=== PATIENT | female | born 1990 | race Caucasian/White ===

== ENCOUNTER 2021-05-26 06:37 | Emergency (ER) | payer OTHER ==
[~2021-05-26] VITALS: Ht 172.7 cm; Wt 113.4 kg
[2021-05-26] MEDS ORDERED: LEVOTHYROXINE50 MC1 PO (06:43)
[2021-05-26] MEDS ORDERED: SERTRALINE HCL100 MG PO (06:43)
[2021-05-26 07:26] LABS: ABSOLUTE BASOPHILS 0.1 thou/uL (0.0-0.2); ABSOLUTE EOSINOPHILS 0.2 thou/uL (0.0-0.7); ABSOLUTE LYMPHOCYTES 2.1 thou/uL (0.8-5.3); ABSOLUTE MONOCYTES 0.6 thou/uL (0.0-1.2); ABSOLUTE NEUTROPHILS 7.2 thou/uL (1.6-8.1); EOSINOPHILS 1.5 %; HEMOGLOBIN 13.3 gm/dL (12.0-15.0); LYMPHOCYTES 21.1 %; MCH 31.1 pg (26.0-34.0); MCV 88.9 fL (80.0-100.0); MONOCYTES 5.6 %; MPV 7.3 fl. (7.2-11.1); NUCLEATED RBCS 0 /100WBC; PLATELET COUNT* 374 thou/uL (150-400); POLYS 70.8 %; RBC 4.28 mil/uL (4.20-5.00); RDW-CV 13.8 % (10.5-14.5); WBC 10.2 thou/uL (4.0-11.0)
[2021-05-26 07:27] LABS: URINE BILIRUBIN NEGATIVE (Negative); URINE BLOOD NEGATIVE (Negative); URINE CLARITY CLEAR; URINE COLOR YELLOW; URINE GLUCOSE-RANDOM NEGATIVE (Negative); URINE KETONES NEGATIVE (Negative); URINE LEUKOCYTES-REFLEX NEGATIVE (Negative); URINE NITRITE-REFLEX NEGATIVE (Negative); URINE PROTEIN NEGATIVE (Negative); URINE SPECIFIC GRAVITY 1.015 (1.005-1.030); URINE UROBILINOGEN 0.2 E.U./dl (0.2-1.0)
[2021-05-26 07:35] LABS: CALCIUM 8.4 mg/dL (8.5-10.1); CREATININE 0.9 mg/dL (0.6-1.3); POTASSIUM 3.7 mmol/L (3.5-5.1)
[2021-05-26 07:50] LABS: TOTAL BILIRUBIN 0.2 mg/dL (<0.1-1.0); TOTAL PROTEIN 8.1 g/dL (6.4-8.2)
[2021-05-26 08:26] LABS: AMP/METHAMP Negative (Negative); BARBITURATES Negative (Negative); BENZODIAZEPINES Negative (Negative); COCAINE Negative (Negative); METHADONE Negative (Negative); OPIATES Negative (Negative); PCP Negative (Negative); THC Negative (Negative)
[2021-05-26] MEDS ORDERED: CARAFATE1 GM PO (08:39)
[2021-05-26] MEDS ORDERED: ZOFRAN ODT4 MG DISSOLVE (08:39)
[2021-05-26 08:48] VITALS: BP 114/57
== END 2021-05-26 08:48 | disposition home or self-care (01) ==
LOC: M.ERS 06:37
PROVIDERS: Emergency Medicine
DX: F41.9 Anxiety disorder, unspecified (principal); K29.70 Gastritis, unspecified, without bleeding; F10.129 Alcohol abuse with intoxication, unspecified; Y90.7 Blood alcohol level of 200-239 mg/100 ml; Z88.2 Allergy status to sulfonamides; Z79.899 Other long term (current) drug therapy